=== PATIENT | female | born 1965 | race Caucasian/White ===

== ENCOUNTER 2016-09-18 05:50 | Inpatient (IN) | payer OTHER ==
[2016-09-06 11:23] VITALS: BMI 36.3
[2016-09-18] MEDS ORDERED: MIDAZOLAM HCL 2 MG/2 ML SINGLE DOSE VIAL ONE (06:32)
[2016-09-18] MEDS ORDERED: DEXAMETHASONE SOD PHOSPHATE/PF 10 MG/ML SDV ONE (06:32)
[2016-09-18] MEDS ORDERED: ROPIVACAINE HCL 0.5% 30ML VIAL ONE (06:32)
[2016-09-18] MEDS ORDERED: SODIUM CHLORIDE 0.9% P/F 10 ML VIAL IJ ONE (06:32)
[2016-09-18] MEDS ORDERED: oxyCODONE HCL 10 MG SUSTAINED ACTING TABLET ONE (07:00)
[2016-09-18] MEDS ORDERED: GABAPENTIN 300 MG CAPSULE (FP) ONE (07:00)
[2016-09-18] MEDS ORDERED: CELECOXIB 200 MG CAPSULE ONE (07:01)
[2016-09-18] MEDS ORDERED: TRANEXAMIC ACID 1000 MG/10 ML VIAL ONE ×3 (07:21→10:45)
[2016-09-18] MEDS ORDERED: ROPIVICAINE 0.2%/MORPH PF/KETOROLAC - 51ML DISP.SYRINGE IA ONE ×2 (07:22→10:53)
[2016-09-18] MEDS ORDERED: VANCOMYCIN 1,000 MG VIAL (RESTRICTED TO ID ONLY) ONE (07:22)
--- NOTE | 2016-09-18 07:37 | HP ---
Admitting History and Physical - Admission Chief Complaint: right knee osteoarthritis x years History of Present Illness: 51 year old female presents in regard to her right knee. Longstanding history of right knee osteoarthritis. Patient complains of pain, limited ROM and difficulty ambulating. Patient has failed conservative treatment including PO medication, activity modification and injections. Patient would like to proceed with a right total knee arthroplasty. - Past Medical History Cardiovascular: Yes: HTN, Hyperlipdemia Pulmonary: Yes: Asthma Gastrointestinal: Yes: GERD ...LMP Comment: 06/2015 ...: No Psych: Yes: Depression Endocrine: Yes: Diabetes Mellitus, Hypothyroidism - Past Surgical History Additional Past Surgical History: See written H&P - Smoking History Smoking history: Former smoker Have you smoked in the past 12 months: No If you are a former smoker, when did you quit?: 4 yrs - Alcohol/Substance Use Hx Alcohol Use: No Home Medications - Allergies Allergies/Adverse Reactions: Allergies Allergy/AdvReac Type Severity Reaction Status Date / Time ciprofloxacin [From Cipro] Allergy Verified 09/18/16 06:38 ciprofloxacin HCl Allergy Verified 09/18/16 06:38 [From Cipro] bee venom Allergy Uncoded 09/18/16 06:38 - Home Medications Home Medications: Ambulatory Orders Aripiprazole [Abilify] 15 mg PO DAILY 09/06/16 Aspirin [Aspirin EC] 81 mg PO DAILY 09/06/16 Atorvastatin Ca [Lipitor] 20 mg PO HS 09/06/16 Clozapine 250 mg PO HS 09/06/16 Gabapentin [Neurontin] 600 mg PO HS 09/06/16 Levothyroxine [Synthroid -] 100 mcg PO DAILY 09/06/16 Lisinopril [Zestril] 2.5 mg PO Q48H 09/06/16 Metformin HCl [Metformin HCl ER] 1,000 mg PO DAILY 09/06/16 Mometasone Furoate [Asmanex] 0.135 gm IH DAILY 09/06/16 Pantoprazole Sodium [Protonix -] 20 mg PO DAILY 09/06/16 Propranolol HCl 10 mg PO BID 09/06/16 Salmeterol/Fluticasone [Advair 500Mcg/50Mcg] 1 inh PO BID 09/06/16 Sertraline HCl [Zoloft -] 150 mg PO HS 09/06/16 Tiotropium [place] [Spiriva Respimat] 4 gm IH DAILY 09/06/16 Cholecalciferol (Vitamin D3) [Vitamin D3] 2,000 unit PO DAILY 09/18/16 Review of Systems - Review of Systems Musculoskeletal: reports: Decreased ROM (right knee), Joint Pain Physical Examination Vital Signs: Vital Signs Temperature 97.8 F 09/18/16 06:43 Pulse Rate 94 H 09/18/16 06:43 Respiratory Rate 18 09/18/16 06:43 Blood Pressure 113/72 09/18/16 06:43 O2 Sat by Pulse Oximetry (%) Constitutional: Yes: Well Nourished, No Distress Eyes: Yes: Conjunctiva Clear HENT: Yes: Atraumatic, Normocephalic Neck: Yes: Supple Cardiovascular: Yes: Regular Rate and Rhythm Respiratory: Yes: Regular Gastrointestinal: Yes: Soft ...Rectal Exam: Yes: Deferred Musculoskeletal: Yes: Joint Stiffness, Joint Swelling, Other (Limited ROM right knee) Assessment/Plan 51 year old female with longstanding history of right knee osteoarthritis. Patient has failed conservative treatment. Proceed with a right total knee arthroplasty.
[2016-09-18] MEDS ORDERED: PHENYLEPHRINE HCL 10 MG/1 ML SINGLE DOSE VIAL ONE (07:48)
[2016-09-18] MEDS ORDERED: ePHEDrine SULFATE 50 MG/1 ML AMPULE ONE (07:48)
[2016-09-18] MEDS ORDERED: SUCCINYLCHOLINE CHLORIDE 200 MG/10 ML VIAL ONE (07:48)
[2016-09-18] MEDS ORDERED: PROPOFOL 20 ML ONE ×5 (07:48→11:07)
[2016-09-18] MEDS ORDERED: ceFAZolin SODIUM 1 GM VIAL ONE (08:41)
[2016-09-18] MEDS ORDERED: ONDANSETRON 4 MG/2 ML VIAL ONE ×2 (09:08→10:45)
[2016-09-18] MEDS ORDERED: TRANEXAMIC ACID 1000 MG/10 ML VIAL IVPUSH ONE (10:38)
[2016-09-18] MEDS ORDERED: VANCOMYCIN 1,000 MG VIAL (RESTRICTED TO ID ONLY) IVPB ONE (10:38)
[2016-09-18] MEDS ORDERED: ROCURONIUM BROMIDE 50 MG/5 ML VIAL ONE (11:07)
[2016-09-18] MEDS ORDERED: ONDANSETRON 4 MG/2 ML VIAL IVPUSH PRN (11:46)
[2016-09-18] MEDS ORDERED: oxyCODONE HCL 5 MG TABLET PO PRN (11:47)
[2016-09-18] MEDS ORDERED: ROPIVACAINE 0.2% 400ML 400 ML ML NR ONE (11:47)
[2016-09-18] MEDS ORDERED: ACETAMINOPHEN 1000 MG/100 ML VIAL (NON FORMULARY) IVPB ONE (11:47)
[2016-09-18] MEDS ORDERED: ONDANSETRON 4 MG/2 ML VIAL IVPB PRN (11:59)
--- NOTE | 2016-09-18 11:59 | OP ---
Operative Note - Note: Operative Date: 09/18/16 Pre-Operative Diagnosis: Right knee OA Operation: Right TKA Post-Operative Diagnosis: Same as Pre-op Surgeon: Mehul Devi Lapel Baster: Tri Lorenzo Anesthesia: Spinal Estimated Blood Loss (mls): 100 Operative Report Dictated: Yes
[2016-09-18] MEDS ORDERED: LACTATED RINGERS SOLUTION 1,000 ML IV SCH (12:00)
[2016-09-18] MEDS ORDERED: KETOROLAC TROMETHAMINE 30 MG/1 ML VIAL IVPUSH SCH (12:15)
[2016-09-18] MEDS ORDERED: traMADol HCL 50 MG TABLET PO SCH (12:15)
[2016-09-18] MEDS ORDERED: MAGNESIUM HYDROX 2400MG/30ML ORAL SUSPENSION 30 ML CUP PO PRN (13:28)
[2016-09-18] MEDS ORDERED: MAG HYDROX/AL HYDROX/SIMETH 30 ML UNIT-DOSE CUP PO PRN (13:28)
[2016-09-18] MEDS: LACTATED RINGERS SOLUTION 1,000 ML IV SCH (17:16)
[2016-09-18] MEDS: ACETAMINOPHEN 325 MG TABLET (FP) PO SCH (17:54)
[2016-09-18] MEDS: CEFAZOLIN 2 GM/D5W 50 ML IVPB SCH (17:54)
--- NOTE | 2016-09-18 18:26 | SPEC ---
DATE OF OPERATION: 09/18/2016 PREOPERATIVE DIAGNOSIS: Right knee osteoarthritis. POSTOPERATIVE DIAGNOSIS: Right knee osteoarthritis. PROCEDURE: Right total knee replacement. ATTENDING: Jareth Abbott M.D. CREATIVE TECHNOLOGIST: Suhas Blancas ANESTHESIA: Spinal plus sedation. ESTIMATED BLOOD LOSS: 100 mL. COMPLICATIONS: None. SPECIMENS: Resected bone was sent for pathology analysis. DISPOSITION: Patient was transferred to the PACU in stable condition. IMPLANTS USED: Rob Triathlon size 4 femoral component, Rob Triathlon size 5 tibial component, a 13-mm posterior stabilized polyethylene component, and 32-mm patellar component. INDICATION: This is a 51-year-old female who presented to the office complaining of severe right knee pain. She was seen and examined by Dr. Abbott and diagnosed with severe right knee osteoarthritis. She had previously been treated with injections, medications, and physical therapy in our office and had failed conservative management. She was therefore indicated for a right total knee replacement. The risks, benefits, and alternatives to the procedure were explained again to the patient in the office, and she elected to proceed with the surgery. On the day of surgery, the patient was taken to the operating room and placed on the OR table. Spinal anesthesia was administered by the anesthesiologist. The patient was then positioned supine on the table and all bony prominences were padded. A nonsterile tourniquet was placed on the proximal thigh. The knee was then prepped and draped in the usual sterile fashion and intravenous antibiotics were given for infection prophylaxis. A surgical time-out was then performed with the team, and the patients identity, procedure, side, availability of implants, and the administration of antibiotics was confirmed. The leg was then elevated and exsanguinated, and the tourniquet was inflated. With the knee flexed, a midline incision was made and carried down through the subcutaneous fat to the underlying retinaculum. A medial parapatellar arthrotomy was performed. This was followed by a subperiosteal dissection of the tissue off the proximal, medial tibia. A portion of fat pad was removed from under the patellar tendon, and a small portion of fat was excised off the distal supracondylar femur. The knee was then flexed further and the anterior horn of the lateral meniscus was released from the midline. Next, the anterior and posterior cruciate ligaments were transected. Osteophytes were removed from both the femur and tibia. Grade 4 changes were noted diffusely throughout the knee. Hohmann retractors were then placed around the distal femur. The starting drill was used to enter the intramedullary canal. The starting point had been chosen by checking the radiographs and anatomy. Proper alignment and intramedullary placement was then confirmed by placing the long narrow howie into the femur. Next, the distal femoral cutting guide was adjusted to 6 degrees of valgus and pinned to the femur. The bone resection was assessed using an malia-wing. An approximately 10mm distal cut was made and the cut pieces measured. Once this was complete, the sizing guide was used to determine which size femoral component should be used. Next, the appropriately sized 4-in-1 cutting block was then placed at the correct amount of external rotation and the malia wing was used to assure that there would be no notching of the anterior cortex of the femur. Once this was done, Hohmann retractors were used to protect the medial and lateral collateral ligaments, and all appropriate bone cuts were made. Attention was then turned to the tibia. Hohmann retractors were used to translate the tibia anteriorly and protect the collateral ligaments. The medial and lateral menisci were removed. The extramedullary tibial alignment guide was then placed and adjusted for rotation, varus/valgus, and slope. The height of the cutting block was adjusted to the level of the desired bone resection and then pinned in place. The proximal tibia was then cut with a saw and the bone was removed and measured. Once this was completed, trial components were placed and the knee was taken through a full range of motion. Soft tissue balance was assessed in both flexion and extension and found to be appropriate. The knee was stable throughout the full range of motion. The knee was then put into extension and the patella everted. The synovium around the patella was circumscribed with electrocautery. A caliper was used to measure the patellar thickness and a saw was then used to resect the patella at the chondro-osseous junction. The cut surface was then sized and drilled for the appropriate patellar button, with care taken to medialize it. A trial patella was then placed and the knee was again taken through a full range of motion. The knee was found to have both good balance and good patellar tracking. All of the components were removed except the tibial base plate. The appropriate instrumentation was used to drill and punch the proximal tibia for the keel of the final component. All bony surfaces were then cleaned with pulsatile lavage and dried. Bone cement was then prepared on the back table, and final components were cemented in place in the usual fashion. Extruded cement was removed. The polyethylene trial was placed, the knee was put into extension, and axial pressure was applied for compression while the cement hardened. The patellar button was similarly cemented into place. Once the cement had hardened, the knee was taken through a full range of motion to assess stability, balance, and patellar tracking. This was found to be optimal and the trial polyethylene was exchanged for the appropriately sized real implant. The wound was then thoroughly irrigated with normal saline. No. 1 Polysorb and 0 VLoc 180 barbed sutures were used to close the arthrotomy. No. 1 Polysorb and 2-0 Polysorb sutures were used in the subcutaneous tissues. The skin was closed using both 3-0 VLoc 90 suture in a running subcuticular fashion and SwiftSet skin adhesive. Once this was completed a sterile Aquacel dressing and compressive Ned-wrap was applied. The tourniquet was then deflated and the patient was awakened and taken to the PACU in stable condition. At the conclusion of the case, prior to wound closure, a 3-minute dilute Betadine lavage was performed according to the ROUND O protocol. Pulse lavage saline was used to irrigate the knee afterwards, and then wound closure was begun. JARETH ABBOTT M.D. [id number]
[2016-09-18] MEDS: traMADol HCL 50 MG TABLET PO SCH (19:22)
[2016-09-18] MEDS: KETOROLAC TROMETHAMINE 30 MG/1 ML VIAL IVPUSH SCH (19:22)
[2016-09-18] MEDS: oxyCODONE HCL 5 MG TABLET PO PRN (20:24)
[2016-09-18] MEDS ORDERED: PT OWN MED DRAWER 7, Y5N ONE (21:27)
[2016-09-18] MEDS ORDERED: PATIENT'S OWN MEDICATION (NON-FORMULARY) (Salmeterol/Fluticasone [Advair 500mcg/50mcg -] 1 PO SCH (22:00)
[2016-09-18] MEDS ORDERED: GABAPENTIN 300 MG CAPSULE (FP) PO SCH ×2 (22:00)
[2016-09-18] MEDS: CELECOXIB 200 MG CAPSULE PO SCH (22:48)
[2016-09-18] MEDS: PROPRANOLOL HCL 10 MG TABLET (FP) PO SCH (22:49)
[2016-09-18] MEDS: ATORVASTATIN CA 20 MG TABLET (FP) PO SCH (22:49)
[2016-09-18] MEDS: SERTRALINE HCL 50 MG TABLET (FP) PO SCH (22:49)
[2016-09-18] MEDS: SENNOSIDES/DOCUSATE COMBO (SENNA PLUS) TABLET (UD) PO SCH (22:50)
[2016-09-18] MEDS: ASCORBIC ACID 500 MG TABLET (FP) PO SCH (22:50)
[2016-09-18] MEDS: GABAPENTIN 300 MG CAPSULE (FP) PO SCH (22:50)
[2016-09-18] MEDS: BUDESONIDE/FORMETEROL FUMARATE 160/4.5 mcg INHALER IH SCH (22:51)
[2016-09-18] MEDS: oxyCODONE HCL 10 MG SUSTAINED ACTING TABLET PO SCH (22:51)
[2016-09-18] MEDS: CLOZAPINE 25 MG PO SCH (22:52)
[2016-09-18] MEDS: CLOZAPINE 100 MG PO SCH (22:52)
[2016-09-19] MEDS: CEFAZOLIN 2 GM/D5W 50 ML IVPB SCH (01:55)
[2016-09-19] MEDS: KETOROLAC TROMETHAMINE 30 MG/1 ML VIAL IVPUSH SCH ×2 (02:00→07:00)
[2016-09-19] MEDS: traMADol HCL 50 MG TABLET PO SCH ×3 (02:01→12:49)
[2016-09-19] MEDS: ACETAMINOPHEN 325 MG TABLET (FP) PO SCH ×5 (02:01→23:21)
[2016-09-19] MEDS: LEVOTHYROXINE NA 100 MCG TABLET (FP) PO SCH (06:58)
[2016-09-19] MEDS: ASPIRIN 325 MG TABLET PO SCH (08:12)
[2016-09-19 09:16] LABS: MCHC 33.4 g/dl (32.0-36.0); MEAN CELL VOLUME 80.9 fl (80-96); MEAN PLT VOLUME 8.1 fl (7.5-11.1); PLATELET COUNT 217 K/MM3 (134-434); RDW 15.1 % (11.6-15.6); WHITE BLOOD COUNT 8.5 K/mm3 (4.0-10.0)
[2016-09-19] MEDS ORDERED: PT OWN MED DRAWER 7, Y5N ONE ×2 (09:49→22:14)
[2016-09-19 09:53] LABS: CALCIUM 8.9 mg/dl (8.4-10.2); CREATININE 0.9 mg/dl (0.6-1.3)
[2016-09-19] MEDS ORDERED: MOMETASONE FUROATE 110 MCG/IH INHALER IH SCH (10:00)
[2016-09-19] MEDS ORDERED: PATIENT'S OWN MEDICATION (NON-FORMULARY) (Tiotropium Bromide [Spiriva Respimat] 4 GM) IH SCH (10:00)
[2016-09-19] MEDS: MULTIVITAMINS (DAILY MVI) TABLET (FP) PO SCH (10:56)
[2016-09-19] MEDS: ARIPiprazole 5 MG TABLET (FP) PO SCH (10:57)
[2016-09-19] MEDS: CELECOXIB 200 MG CAPSULE PO SCH ×2 (10:57→22:32)
[2016-09-19] MEDS: PANTOPRAZOLE 40 MG TABLET (FP) PO SCH (10:57)
[2016-09-19] MEDS: PROPRANOLOL HCL 10 MG TABLET (FP) PO SCH ×2 (10:57→22:30)
[2016-09-19] MEDS: oxyCODONE HCL 10 MG SUSTAINED ACTING TABLET PO SCH ×2 (10:59→22:31)
[2016-09-19] MEDS: ASCORBIC ACID 500 MG TABLET (FP) PO SCH ×2 (10:59→22:30)
[2016-09-19] MEDS: BUDESONIDE/FORMETEROL FUMARATE 160/4.5 mcg INHALER IH SCH ×2 (11:00→22:31)
[2016-09-19] MEDS: SENNOSIDES/DOCUSATE COMBO (SENNA PLUS) TABLET (UD) PO SCH ×2 (11:03→22:31)
[2016-09-19] MEDS: LACTATED RINGERS SOLUTION 1,000 ML IV SCH (12:12)
[2016-09-19] MEDS: oxyCODONE HCL 5 MG TABLET PO PRN ×3 (12:48→21:36)
--- NOTE | 2016-09-19 14:26 | PN ---
Progress Note (short form) - Note Progress Note: 51F POD1 s/p R TKR under spinal anesthetic with continuous adductor canal catheter and selective tibial blocks for post operative pain doing well. Pt states that her pain is well controlled, AVSS, reports no anesthetic complications. Sensory and motor function is intact in both lower extremities.
--- NOTE | 2016-09-19 22:08 | PN ---
Progress Note (short form) - Note Progress Note: Pt seen and examined. Comfortable. Afebrile Selected Entries 09/19/16 09/19/16 09:54 13:30 Temperature 98.7 F 97.6 F Pulse Rate 70 108 H Respiratory 18 19 Rate Blood Pressure 96/50 101/67 O2 Sat by Pulse 97 Oximetry (%) Oxygen Delivery Room Air Method Laboratory Tests 09/19/16 09/19/16 07:00 07:00 WBC 8.5 Hgb 11.9 Hct 35.6 Plt Count 217 Sodium 139 Potassium 4.2 Chloride 106 Carbon Dioxide 28 Anion Gap 5 L BUN 22 H Creatinine 0.9 Random Glucose 171 H Calcium 8.9 Gen: NAD LLE: c/d/i, NVID A/P 51yo female POD#1 s/p R TKA 1. PT/OOB 2. D/C home tomorrow
[2016-09-19] MEDS: SERTRALINE HCL 50 MG TABLET (FP) PO SCH (22:30)
[2016-09-19] MEDS: ATORVASTATIN CA 20 MG TABLET (FP) PO SCH (22:30)
[2016-09-19] MEDS: GABAPENTIN 300 MG CAPSULE (FP) PO SCH (22:31)
[2016-09-19] MEDS: CLOZAPINE 100 MG PO SCH (22:32)
[2016-09-19] MEDS: CLOZAPINE 25 MG PO SCH (22:32)
[2016-09-20] MEDS: traMADol HCL 50 MG TABLET PO SCH ×2 (01:00→06:24)
[2016-09-20 06:12] VITALS: BP 109/59; PULSE 112; TEMP 99.5
[2016-09-20] MEDS: ACETAMINOPHEN 325 MG TABLET (FP) PO SCH ×2 (06:27→11:55)
[2016-09-20] MEDS: LEVOTHYROXINE NA 100 MCG TABLET (FP) PO SCH (06:27)
[2016-09-20] MEDS ORDERED: PT OWN MED DRAWER 7, Y5N ONE (09:18)
[2016-09-20] MEDS: BUDESONIDE/FORMETEROL FUMARATE 160/4.5 mcg INHALER IH SCH (09:19)
[2016-09-20] MEDS: MULTIVITAMINS (DAILY MVI) TABLET (FP) PO SCH (09:20)
[2016-09-20] MEDS: SENNOSIDES/DOCUSATE COMBO (SENNA PLUS) TABLET (UD) PO SCH (09:20)
[2016-09-20] MEDS: PROPRANOLOL HCL 10 MG TABLET (FP) PO SCH (09:20)
[2016-09-20] MEDS: CELECOXIB 200 MG CAPSULE PO SCH (09:20)
[2016-09-20] MEDS: ASPIRIN 325 MG TABLET PO SCH (09:20)
[2016-09-20] MEDS: PANTOPRAZOLE 40 MG TABLET (FP) PO SCH (09:20)
[2016-09-20] MEDS: ARIPiprazole 5 MG TABLET (FP) PO SCH (09:20)
[2016-09-20] MEDS: ASCORBIC ACID 500 MG TABLET (FP) PO SCH (09:20)
[2016-09-20] MEDS: oxyCODONE HCL 10 MG SUSTAINED ACTING TABLET PO SCH (09:21)
[2016-09-20 09:27] LABS: BASOPHIL 0.4 % (0-2.0); MCH 27.1 pg (25.7-33.7); MCHC 33.7 g/dl (32.0-36.0); MEAN CELL VOLUME 80.5 fl (80-96); MEAN PLT VOLUME 7.9 fl (7.5-11.1); NEUTROPHILS 78.8 % (42.8-82.8); PLATELET COUNT 207 K/MM3 (134-434); RDW 15.2 % (11.6-15.6); WHITE BLOOD COUNT 8.6 K/mm3 (4.0-10.0)
[2016-09-20 09:46] LABS: CALCIUM 8.5 mg/dl (8.4-10.2); CREATININE 0.7 mg/dl (0.6-1.3)
[2016-09-20] MEDS ORDERED: LISINOPRIL 5 MG TABLET (FP) PO SCH (10:00)
--- NOTE | 2016-09-20 11:21 | PN ---
Progress Note (short form) - Note Progress Note: Pt seen and examined. Comfortable. Afebrile Selected Entries 09/19/16 09/20/16 09/20/16 23:03 05:00 06:11 Temperature 99.5 F Pulse Rate 112 H Respiratory 19 Rate Blood Pressure 109/59 O2 Sat by Pulse 95 93 L Oximetry (%) Oxygen Delivery Room Air Room Air Method Laboratory Tests 09/20/16 09/20/16 08:18 08:18 WBC 8.6 Hgb 11.8 Hct 34.9 Plt Count 207 Sodium 135 L Potassium 4.0 Chloride 100 Carbon Dioxide 28 Anion Gap 7 L BUN 15 D Creatinine 0.7 D Random Glucose 162 H Calcium 8.5 Gen: NAD LLE: c/d/i, NVID A/P 51yo female POD#2 s/p R TKA 1. PT/OOB 2. D/C home today
--- NOTE | 2016-09-20 11:28 | DS ---
Physical Examination Vital Signs: Vital Signs Temperature 99.5 F 09/20/16 06:11 Pulse Rate 112 H 09/20/16 06:11 Respiratory Rate 19 09/20/16 06:11 Blood Pressure 109/59 09/20/16 06:11 O2 Sat by Pulse Oximetry (%) 93 L 09/20/16 05:00 Labs: CBC, BMP 09/20/16 08:18 09/20/16 08:18 Discharge Summary Reason For Visit: OSTEOARTHRITIS RIGHT KNEE Current Active Problems Right knee DJD (Acute) Procedures: Principal: total knee replacement, right Hospital Course: Admitted for elective surgery. Procedure performed without complications. Pt received postoperative antibiotic prophylaxis and DVT ppx. Ambulated with physical therapy. Stable for discharge home with outpatient followup. Condition: Stable - Instructions Diet, Activity, Other Instructions: Dr. Devi - Knee Replacement Instructions Keep the Aquacel dressing on until removed by Dr. Devi in 10-14 days - it is antibacterial and waterproof and you can shower with it on. Call the office for a follow-up appointment with Dr. Devi in 10-14 days. (Dr. Devi will be at a conference out of town next week; Drs. Turner and Joe will be in the office if you need anything) Take one Aspirin 325mg daily for 6 weeks to prevent blood clots in your legs. Take one Pantoprazole 40mg daily for 6 weeks to protect against heartburn and ulcers. Take Celebrex 200mg twice daily for 30 days to reduce swelling and inflammation. For pain: *Mild pain (1-3/10): Take 1 Tramadol tablet every 4 hours as needed. Moderate pain (4-6/10): Take 1 Tramadol tablet and 1 Percocet tablet every 4 hours as needed. Severe pain (7-10/10): Take 1 Tramadol tablet and 2 Percocet tablets every 4 hours as needed. Activity: You can put as much weight on the operative leg as you want. Right after you get home, there will be a physical therapist coming to your house to help you walk around and bend/straighten your knee. After your follow-up appointment, you will be sent for more intensive outpatient physical therapy which will include machines and equipment that the home therapist cannot bring to your house. Always use a walker or cane for balance and to prevent falls. Disposition: [facility]/HOME HEALTH CARE - Home Medications Comprehensive Discharge Medication List: Ambulatory Orders Aripiprazole [Abilify] 15 mg PO DAILY 09/06/16 Atorvastatin Ca [Lipitor] 20 mg PO HS 09/06/16 Clozapine 250 mg PO HS 09/06/16 Gabapentin [Neurontin] 600 mg PO HS 09/06/16 Levothyroxine [Synthroid -] 100 mcg PO DAILY 09/06/16 Lisinopril [Zestril] 2.5 mg PO Q48H 09/06/16 Metformin HCl [Metformin HCl ER] 1,000 mg PO DAILY 09/06/16 Mometasone Furoate [Asmanex] 0.135 gm IH DAILY 09/06/16 Propranolol HCl 10 mg PO BID 09/06/16 Salmeterol/Fluticasone [Advair 500Mcg/50Mcg -] 1 inh PO BID 09/06/16 Sertraline HCl [Zoloft -] 150 mg PO HS 09/06/16 Tiotropium [place] [Spiriva Respimat] 4 gm IH DAILY 09/06/16 Cholecalciferol (Vitamin D3) [Vitamin D3] 2,000 unit PO DAILY 09/18/16 Ascorbic Acid [Vitamin C -] 500 mg PO BID tablet 09/20/16 Aspirin [ASA -] 325 mg PO DAILY@0800 #40 tablet 09/20/16 Celecoxib [CeleBREX -] 200 mg PO BID #60 capsule 09/20/16 Multivitamins [Multivit ([facility] Formulary)] 1 tab PO DAILY tab 09/20/16 Oxycodone HCl/Acetaminophen [Percocet 5-325 mg Tablet] 1 - 2 tab PO Q4H PRN #60 tablet MDD 8 09/20/16 Pantoprazole Sodium [Protonix -] 40 mg PO DAILY #40 tablet.ec 09/20/16 Sennosides/Docusate Sodium [Pericolace -] 2 tablet PO BID tablet 09/20/16 Tramadol HCl [Ultram -] 50 mg PO Q4H PRN #90 tablet MDD 6 09/20/16
--- NOTE | 2016-09-20 12:19 | PN ---
Progress Note, Physician Chief Complaint: Pt. ambulating and voiding, pain controlled with adductor canal catheter and selective tibial nerve block. No anesthesia complaints. - Current Medication List Current Medications: Active Medications Acetaminophen (Tylenol -) 650 mg PO Q6H [facility] Stop: 09/21/16 17:59 Last Admin: 09/20/16 11:55 Dose: 650 mg Al Hydroxide/Mg Hydroxide (Mylanta Oral Suspension -) 30 ml PO Q4H PRN PRN Reason: DYSPEPSIA Last Admin: 09/19/16 23:21 Dose: 30 ml Aripiprazole (Abilify) 15 mg PO DAILY [facility] Last Admin: 09/20/16 09:20 Dose: 15 mg Ascorbic Acid (Vitamin C -) 500 mg PO BID [facility] Last Admin: 09/20/16 09:20 Dose: 500 mg Aspirin (Asa -) 325 mg PO DAILY@0800 [facility] Last Admin: 09/20/16 09:20 Dose: 325 mg Atorvastatin Calcium (Lipitor -) 20 mg PO [facility] Last Admin: 09/19/16 22:30 Dose: 20 mg Budesonide/Formoterol Fumarate (Symbicort 160/4.5mcg -) 2 puff IH BID [facility] Last Admin: 09/20/16 09:19 Dose: 2 puff Celecoxib (Celebrex -) 200 mg PO BID [facility] Last Admin: 09/20/16 09:20 Dose: 200 mg Fentanyl (Sublimaze Injection -) 50 mcg IVPUSH [id number] PRN PRN Reason: PAIN Stop: 09/21/16 11:47 Gabapentin (Neurontin -) 600 mg PO [facility] Last Admin: 09/19/16 22:31 Dose: Not Given Lactated Ringer's (Lactated Ringers Solution) 1,000 mls @ 125 mls/hr IV [facility] Last Admin: 09/19/16 12:12 Dose: Not Given Levothyroxine Sodium (Synthroid -) 100 mcg PO DAILY@0700 [facility] Last Admin: 09/20/16 06:27 Dose: 100 mcg Lisinopril (Prinivil) 2.5 mg PO Q48H [facility] Last Admin: 09/20/16 11:01 Dose: 2.5 mg Magnesium Hydroxide (Milk Of Magnesia -) 30 ml PO PRN PRN PRN Reason: CONSTIPATION Metformin HCl (Glucophage Xr -) 1,000 mg PO DAILY@0700 [facility] Last Admin: 09/20/16 06:27 Dose: 1,000 mg Mometasone Furoate (Asmanex 110mcg -) puff IH DAILY [facility] Multivitamins/Minerals/Vitamin C (Tab-A-Vit -) 1 tab PO DAILY [facility] Last Admin: 09/20/16 09:20 Dose: 1 tab Clozapine 25 Mg Tab (- Patient Own Med) 50 mg PO [facility] Last Admin: 09/19/16 22:32 Dose: 50 mg Non-Formulary Medication (Tiotropium [place] [Spiriva Respimat]) 4 gm IH DAILY [facility] Clozapine 100 Mg Tab (- Patient Own Med) 200 mg PO [facility] Last Admin: 09/19/16 22:32 Dose: 200 mg Ondansetron HCl (Zofran Injection) 4 mg IVPB Q6H PRN PRN Reason: NAUSEA Oxycodone HCl (Oxycontin -) 10 mg PO BID [facility] Stop: 09/21/16 11:47 Last Admin: 09/20/16 09:21 Dose: Not Given Oxycodone HCl (Roxicodone -) 5 mg PO Q4H PRN PRN Reason: PAIN Stop: 09/21/16 11:47 Last Admin: 09/19/16 21:36 Dose: 5 mg Oxycodone HCl (Roxicodone -) 10 mg PO Q4H PRN PRN Reason: PAIN Stop: 09/21/16 11:47 Last Admin: 09/20/16 00:59 Dose: 10 mg Pantoprazole Sodium (Protonix -) 40 mg PO DAILY [facility] Last Admin: 09/20/16 09:20 Dose: 40 mg Propranolol HCl (Inderal -) 10 mg PO BID [facility] Last Admin: 09/20/16 09:20 Dose: 10 mg Senna/Docusate Sodium (Pericolace -) 2 tablet PO BID [facility] Last Admin: 09/20/16 09:20 Dose: 2 tablet Sertraline HCl (Zoloft -) 150 mg PO [facility] Last Admin: 09/19/16 22:30 Dose: 150 mg Tramadol HCl (Ultram -) 50 mg PO Q6H [facility] Last Admin: 09/20/16 06:24 Dose: Not Given - Objective Vital Signs: Vital Signs Temperature 99.5 F 09/20/16 06:11 Pulse Rate 112 H 09/20/16 06:11 Respiratory Rate 19 09/20/16 06:11 Blood Pressure 109/59 09/20/16 06:11 O2 Sat by Pulse Oximetry (%) 93 L 09/20/16 05:00 Constitutional: Yes: Well Nourished, No Distress, Calm Musculoskeletal: Yes: WNL Neurological: Yes: WNL, Alert, Oriented ...Motor Strength: WNL Labs: CBC, BMP 09/20/16 08:18 09/20/16 08:18 Assessment/Plan POD#1 s/p Right total knee replacement under spinal with adductor canal catheter and selective tibial nerve block. Doing well. D/C adductor canal catheter.
--- NOTE | 2016-09-20 14:42 | PATH ---
Surgical Pathology Report Patient Name: ERNA TRAORE Med. Rec. #: [id number] /Age/Gender: 1965 (Age: 51) / F Account: [id number] Location: [facility] MED-SURG Taken: 09/18/2016 Received: 09/18/2016 Reported: 09/20/2016 Physicians: Mehul Devi M.D. Specimen(s) Received RIGHT KNEE BONE AND TISSUE Clinical History Osteoarthritis right knee Final Diagnosis BONE AND TISSUE, RIGHT KNEE, TOTAL KNEE REPLACEMENT: CONSISTENT WITH DEGENERATIVE JOINT DISEASE. Electronically Signed Jus Estevez M.D. Gross Description Received in formalin, labeled "right knee bone and tissue" is a 15.0 x 11.5 x 2.0 cm aggregate of multiple ramirez-yellow, irregular portions of bone and soft tissue wit preserved tibial plateau and femoral condyles. The tibial plateau measures 7.6 x 6.0 x 1.8 cm. There is a 2.4 cm in greatest dimension area of eburnation present. The remaining articular surfaces are ramirez-yellow and diffusely granular. The underlying trabecular bone is ramirez-yellow and heterogeneous. Fourth Officer sections are submitted in one cassette, following decalcification. /09/19/201609/19/2016
== END 2016-09-20 11:55 | disposition home health service (06) | DRG 302 ==
LOC: FM/S 05:50
PROVIDERS: ADMIT Student in an Organized Health Care Education/Training Program; ATTEND Student in an Organized Health Care Education/Training Program
PROC: 0SRC0J9 Replacement of Right Knee Joint with Synthetic Substitute, Cemented, Open Approach (ICD-10-PCS; principal; 2016-09-18 09:01)
DX: M17.11 Unilateral primary osteoarthritis, right knee (principal); I10 Essential (primary) hypertension; K21.9 Gastro-esophageal reflux disease without esophagitis; E78.5 Hyperlipidemia, unspecified; J45.909 Unspecified asthma, uncomplicated; E11.9 Type 2 diabetes mellitus without complications; E03.9 Hypothyroidism, unspecified; Z87.891 Personal history of nicotine dependence
CPT/HCPCS: 36415; 73560-TC-RT; 80048; 85025; 85027; 88305-TC; 88311-TC; 94010; 94760; 97116-GP; 97162-PG